=== PATIENT | male | born 1960 | race Two or more races ===

== ENCOUNTER 2020-04-14 11:15 | Inpatient (IN) | payer OTHER ==
[~2020-04-14] VITALS: Ht 180.3 cm; Wt 83.9 kg
== END 2020-04-22 18:48 | disposition home or self-care (01) | DRG 395 ==
LOC: O/R 04-21 06:58 → SURH 04-21 06:58 → SURG-SUITE 04-21 07:00 → SURH 04-21 19:30
PROVIDERS: ADMIT Colon & Rectal Surgery; ATTEND Colon & Rectal Surgery
PROC: 0DBP8ZZ Excision of Rectum, Via Natural or Artificial Opening Endoscopic (ICD-10-PCS; principal; 2020-04-21 07:00)
DX: D12.8 Benign neoplasm of rectum (principal)

== ENCOUNTER 2021-05-06 08:34 | Day surgery (SDC) | payer OTHER | END 2021-05-06 15:30 | disposition home or self-care (01) | LOC: AMB-ENDOS 08:34 | PROVIDERS: ATTEND Colon & Rectal Surgery | DX: D12.2 Benign neoplasm of ascending colon (principal); K64.0 First degree hemorrhoids; Z20.822 Contact with and (suspected) exposure to COVID-19 ==